=== PATIENT | male | born 2000 | race Two or more races ===

== ENCOUNTER 2019-06-07 17:27 | Emergency (ER) | payer MEDICAID, OTHER ==
[~2019-06-07] VITALS: Ht 182.9 cm; Wt 95.0 kg
[2019-06-07 20:59] VITALS: BP 127/79
== END 2019-06-07 21:05 | disposition home or self-care (01) ==
LOC: ED 20:57
DX: F41.1 Generalized anxiety disorder (principal)
CPT/HCPCS: 36415; 80048; 82040; 85025; 93005; 99284; Q0177

== ENCOUNTER 2019-11-21 06:47 | Emergency (ER) | payer OTHER ==
[~2019-11-21] VITALS: Ht 182.9 cm; Wt 94.3 kg
[2019-11-21 06:57] VITALS: BP 110/68
--- NOTE | 2019-11-21 07:17 | NUR ---
FIRST CONTACT WITH PT. PT STATED HASN'T SLEPT SINCE THURSDAY. STATED FEELS AGITATED, CONFUSED AND EXHAUSTED. PT'S AOX4. RESPS EVEN AND UNLABORED.
[2019-11-21] MEDS ORDERED: LORazepam 1MG TABLET ONE (08:12)
--- NOTE | 2019-11-21 08:14 | NUR ---
PT MEDICATED PER EMAR. PT TOLERATED WELL.
[2019-11-21] MEDS ORDERED: LORazepam 1MG TABLET PO ONE (08:30)
[2019-11-21 08:41] LABS: BASOPHILS # (AUTO) 0.03 x10^3/uL (0-0.1); BASOPHILS % (AUTO) 1 % (0-1); EOSINOPHILS % (AUTO) 0 % (1-7); LYMPHOCYTES # (AUTO) 1.42 x10^3/uL (1-3.4); LYMPHOCYTES % (AUTO) 22 % (22-44); MD NO; MEAN CORPUSCULAR HEMOGLOBIN 31.7 pg (27.5-34.5); MEAN CORPUSCULAR VOLUME 93.2 fL (81-97); MEAN PLATELET VOLUME 8.4 fL (7.4-10.4); MONOCYTES # (AUTO) 0.54 x10^3/uL (0.2-0.8); MONOCYTES % (AUTO) 9 % (2-9); NEUTROPHILS # (AUTO) 4.36 x10^3/uL (1.8-6.8); NEUTROPHILS % (AUTO) 69 % (42-75); PLATELET COUNT 189 x10^3/uL (130-400); RED CELL DISTRIBUTION WIDTH 12.3 % (9.4-14.8)
[2019-11-21 08:46] LABS: ALBUMIN 3.5 g/dL (3.4-5.0); CALCIUM 8.6 mg/dL (8.5-10.1); CHLORIDE 110 mmol/L (98-107)
[2019-11-21 08:55] LABS: FREE T4 (FREE THYROXINE) 0.99 ng/dL (0.76-1.46)
[2019-11-21 09:04] LABS: ANION GAP 3 mmol/L (5-15)
--- NOTE | 2019-11-21 09:11 | NUR ---
PT RESTING IN GURNEY. RESPS EVEN AND UNLABORED. FAMILY AT BEDSIDE.
== END 2019-11-21 10:25 | disposition home or self-care (01) ==
LOC: ED 09:43
DX: F51.01 Primary insomnia (principal); F41.1 Generalized anxiety disorder
CPT/HCPCS: 36415; 80048; 82040; 84439; 84443; 85025; 99283

== ENCOUNTER 2019-11-30 00:13 | Emergency (ER) | payer OTHER ==
[~2019-11-30] VITALS: Ht 177.8 cm; Wt 90.0 kg
[2019-11-30 00:33] LABS: BASOPHILS # (AUTO) 0.04 x10^3/uL (0-0.1); BASOPHILS % (AUTO) 1 % (0-1); EOSINOPHILS # (AUTO) 0.01 x10^3/uL (0-0.4); EOSINOPHILS % (AUTO) 0 % (1-7); LYMPHOCYTES # (AUTO) 1.84 x10^3/uL (1-3.4); LYMPHOCYTES % (AUTO) 26 % (22-44); MD NO; MEAN CORPUSCULAR HEMOGLOBIN 31.5 pg (27.5-34.5); MEAN CORPUSCULAR HGB CONC 33.9 g/dL (33.2-36.2); MEAN PLATELET VOLUME 8.8 fL (7.4-10.4); MONOCYTES # (AUTO) 0.66 x10^3/uL (0.2-0.8); MONOCYTES % (AUTO) 9 % (2-9); NEUTROPHILS # (AUTO) 4.67 x10^3/uL (1.8-6.8); NEUTROPHILS % (AUTO) 65 % (42-75); PLATELET COUNT 212 x10^3/uL (130-400); RED CELL DISTRIBUTION WIDTH 12.5 % (9.4-14.8)
[2019-11-30 00:42] LABS: ALBUMIN 3.9 g/dL (3.4-5.0); ANION GAP 4 mmol/L (5-15); CALCIUM 9.1 mg/dL (8.5-10.1); CHLORIDE 108 mmol/L (98-107); CREATININE 1.11 mg/dL (0.7-1.3)
[2019-11-30 00:44] LABS: SALICYLATE LEVEL < 1.7 mg/dL (2.8-20.0)
--- NOTE | 2019-11-30 04:06 | NUR ---
tele psych requested during downtime, still waiting on consult at this time. Pt in no acute distress, resting quietly.
[2019-11-30 05:08] LABS: AMPHETAMINE SCREEN, URINE Negative (Negative); BARBITURATE SCREEN, URINE Negative (Negative); BENZODIAZEPINE SCREEN, URINE Negative (Negative); CANNABINOID SCREEN, URINE Negative (Negative); COCAINE SCREEN, URINE Negative (Negative); METHADONE SCREEN, URINE Negative (Negative); OPIATE SCREEN, URINE Negative (Negative)
[2019-11-30 05:26] VITALS: BP 106/52
--- NOTE | 2019-11-30 05:57 | NUR ---
Tele psych consult complete. States the need for admit and reeval later today.
--- NOTE | 2019-11-30 06:30 | NUR ---
ACCOUNT SUPPORT SPECIALIST: PT PLACED ON A HOLD. MOVED TO A SECURE ROOM, ROOM 40. SITTER OUTSIDE DOOR MONITORING PT
--- NOTE | 2019-11-30 06:31 | NUR ---
pt moved to room 40 and SI protocol initated. Pt personal belongings placed in one bag and put in pt belonging locker. Mother at bedside, pt calm and cooperative at this time. Will continue to monitor
--- NOTE | 2019-11-30 06:39 | NUR ---
TP RN: SPOKE WITH TENNILLE CARL FROM ; PER HER PT. DOES NOT HAVE THE CORRECT INSURANCE. PACKET FAXED TO [facility], [facility], AND [facility].
--- NOTE | 2019-11-30 07:05 | NUR ---
TP RN: pt accepted by TENNILLE Roy at [facility], pt to be under the care of MD [place]
--- NOTE | 2019-11-30 07:09 | NUR ---
REPORT RECEIVED FROM TENNILLE FLORES. PT RESTING ON HOSPITAL BED. NADN. ROOM SECURE. SITER AT BEDSIDE. Addendum: 11/30/19 at 0710 by ELANA *REPORT RECEIVED FROM TENNILLE MOFFETT.
--- NOTE | 2019-11-30 07:12 | NUR ---
REPORT GIVEN TO TENNILLE CAO AT [facility].
--- NOTE | 2019-11-30 07:37 | NUR ---
PT AWARE OF TRANSFER. BELONGINGS GIVEN TO PT. GETTING DRESSED NOW. PT'S MOTHER AT BEDSIDE. ALSO AWARE OF POC.
--- NOTE | 2019-11-30 08:18 | NUR ---
[facility] PICKING PT UP NOW.
== END 2019-11-30 08:20 ==
LOC: ED 00:26
DX: R45.851 Suicidal ideations (principal)
CPT/HCPCS: 36415; 80048; 80164; 80307; 82040; 85025; 99285